=== PATIENT | female | born 1955 | race Caucasian/White ===

== ENCOUNTER 2016-12-27 09:49 | Emergency (ER) | payer OTHER ==
[~2016-12-27] VITALS: Ht 167.6 cm; Wt 84.0 kg
[2016-12-27 09:51] VITALS: Ht 167.6 cm; Wt 84.0 kg
[2016-12-27] MEDS ORDERED: MECL12.574 PO (10:13)
[2016-12-27] MEDS ORDERED: MECLIZINE 12.5 MG TAB PO ONE (10:30)
--- NOTE | 2016-12-27 10:37 | ERD ---
ER Documentation Chief Complaint Date/Time DATE: 12/27/16 TIME: 10:37 Chief Complaint dizziness started today; vomitted 5 times today HPI 61-year-old female with no significant past medical history other than borderline diabetes diet-controlled presenting with severe room spinning dizziness and nausea with vomiting. She states she got out of the shower today and flipped her head over to towel dry her hair. When she stood back up she has severe room spinning dizziness and fell onto the wall. She had multiple episodes of nonbloody and nonbilious vomiting. She states when she tries to move her head in any direction she gets dizziness. No associated earache or tinnitus. When she remains still, she feels better. She denies any other associated symptoms such as headache, vision disturbance, focal weakness or numbness. Denies LOC or head injury. ROS All systems reviewed and are negative except as per history of present illness. Medications Home Meds Active Scripts Promethazine Hcl* (Phenergan*) 25 Mg Tablet, 25 MG PO Q6 Y for NAUSEA AND/OR VOMITING, #10 TAB Prov:MERA EPSTEIN MD 12/27/16 Meclizine Hcl* (Antivert*) 12.5 Mg Tab, 25 MG PO Q6H Y for DIZZINESS, #20 TAB Prov:MERA EPSTEIN MD 12/27/16 Allergies Allergies: Coded Allergies: Penicillins (Verified Allergy, Severe, 12/27/16) Sulfa (Sulfonamide Antibiotics) (Verified Allergy, Severe, 12/27/16) PMhx/Soc Medical and Surgical Hx: pt denies Medical Hx, pt denies Surgical Hx Hx Alcohol Use: Yes Hx Substance Use: No Hx Tobacco Use: No Smoking Status: Never smoker FmHx Family History: diabetes Physical Exam Vitals Vital Signs Date Time Temp Pulse Resp B/P Pulse Ox O2 Delivery O2 Flow Rate FiO2 12/27/16 13:14 87 16 145/81 100 Room Air 12/27/16 09:51 98.4 64 19 201/92 100 Physical Exam Const: well appearing, no distress Head: Atraumatic Eyes: Normal Conjunctiva, bilateral mild horizontal nystagmus, PERRLA, EOMI ENT: Normal External Ears, Nose and Mouth. Neck: Full range of motion..~ No meningismus. Resp: Clear to auscultation bilaterally Cardio: Regular rate and rhythm, no murmurs Abd: Soft, non tender, non distended. Normal bowel sounds Skin: No petechiae or rashes Back: No midline or flank tenderness Ext: No cyanosis, or edema Neur: Awake and alert, oriented x 3, civil structural engineer intact, Strength and sensations intact in all 4 extremities Psych: Normal Mood and Affect Results 24 hrs Laboratory Tests Test 12/27/16 10:05 Bedside Glucose 188mg/dL Current Medications Medications (Trade) Dose Ordered Sig/Richard Route PRN Reason Start Time Stop Time Status Last Admin Dose Admin Meclizine HCl (Antivert) 25 mg ONCE ONCE PO 12/27/16 10:30 12/27/16 10:31 DC 12/27/16 10:46 Promethazine HCl (Phenergan) 25 mg ONCE ONCE PO 12/27/16 12:00 12/27/16 12:01 DC 12/27/16 12:19 Procedures/MDM EKG: Rate/Rhythm: Normal Sinus Rhythm QRS, ST, T-waves: No changes consistent w/ acute ischemia Impression: No evidence of ischemia or arrhythmia Patient is presenting with sudden onset of vertigo. Vitals are stable. Based on my evaluation, I believe the etiology of her vertigo is likely peripheral. I have a lower suspicion for acute stroke, vertebral artery dissection, ACS or any other serious pathology. I initially give the patient meclizine which only provided minimal relief. After that I attempted the Javon maneuver and the patient was definitely symptomatic during this maneuver. She states that her symptoms slightly improved but not completely. I did ambulate her and she was stable but somewhat unsteady at times. I gave her a dose of Phenergan after this. Upon reevaluation the patient's symptoms had significantly improved. She had no dizziness upon head movement. I gave her prescription for meclizine and Phenergan and advised she follow-up with her primary care doctor if her symptoms persist. Return precautions were given. Departure Diagnosis: Primary Impression: Peripheral positional vertigo Laterality: unspecified laterality Qualified Code: H81.399 - Peripheral positional vertigo, unspecified laterality Condition: Stable Patient Instructions: Benign Positional Vertigo Referrals: NO PRIMARY,CARE PHYSICIAN Additional Instructions: I do not recommend you fly your plane today. MERA EPSTEIN MD Dec 27, 2016 10:37
[2016-12-27] MEDS ORDERED: PROMETHAZINE 25 MG TAB PO ONE (12:00)
[2016-12-27] MEDS ORDERED: PROM25TA14 PO (13:08)
[2016-12-27 13:14] VITALS: BP 145/81; PULSE 87; RESP 16
== END 2016-12-27 13:16 | disposition home or self-care (01) ==
LOC: E/R 09:49
DX: H81.399 Other peripheral vertigo, unspecified ear (principal)
CPT/HCPCS: 82962; 93005; 99283